=== PATIENT | male | born 1980 | race Two or more races ===

== ENCOUNTER 2021-12-08 12:08 | Outpatient (REF) | payer OTHER, SELFPAY ==
--- NOTE | ~2021-12-08 | XR_ITS ---
EXAMINATION: XR KNEE, RIGHT CLINICAL INFORMATION: Right knee pain COMPARISON: None TECHNIQUE: Four views of the right knee. FINDINGS: Bones and soft tissues are normal. No fracture or joint effusion. Alignment is anatomic. Joint spaces are well maintained. No abnormal soft tissue calcification. XR/XR knee RT 4V IMPRESSION: Normal right knee.
== END 2021-12-08 12:09 | disposition home or self-care (01) ==
LOC: HO.HMGCX 12:08
PROVIDERS: PCP Nurse Practitioner Family; Visit Provider Nurse Practitioner Family
DX: M25.561 Pain in right knee (principal)
CPT/HCPCS: 73564

== ENCOUNTER 2021-12-09 07:18 | Outpatient (REF) | payer OTHER, SELFPAY ==
[2021-12-09 11:20] LABS: MANUAL DIFF FLAG NO
[2021-12-09 11:36] LABS: Appearance Urine Turbid; Color Urine Yellow; Glucose Urine UA Negative (Negative); Leukocyte Esterase Urine Negative (Negative); Nitrite Urine Negative (Negative); Urine Blood Negative (Negative); Urine Ketones Negative (Negative); Urine Protein Negative (Neg-Trace)
[2021-12-09 11:51] LABS: Basophils Percent Auto 0.7 % (0-2); Hematocrit 48.2 % (42.0-52.0); Hemoglobin 15.9 g/dl (14.0-18.0); Imm Gran Abs Auto 0.01 X10*3/uL (0.00-0.03); Imm Gran Pct Auto 0.4 % (0.0-0.4); Lymphocytes Absolute Auto 0.7 X10*3/uL (1.2-4.9); Lymphocytes Percent Auto 24.7 % (20-40); Mean Corpuscular Hemoglobin 27.6 pg (27.0-33.0); Mean Corpuscular Volume 83.5 fL (80.0-98.0); Mean Platelet Volume 9.6 fL (9.4-12.4); Monocytes Absolute Auto 0.4 X10*3/uL (0.1-1.2); Monocytes Percent Auto 13.1 % (2-11); Neutrophils Absolute Auto 1.7 x10*3/uL (2.0-8.3); Neutrophils Percent Auto 61.1 % (45-73); Platelet Count 165 X10*3/uL (160-400); Red Blood Count 5.77 X10*6/uL (4.60-5.80); Red Cell Distribution Width 13.2 % (11.0-16.0); White Blood Count 2.8 X10*3/uL (4.8-10.8)
[2021-12-09 12:13] LABS: TSH reflex Free T4 1.01 uIU/mL (0.32-4.0)
[2021-12-09 12:39] LABS: Alanine Aminotransferase 10 U/L (0-40); Albumin Level 4.2 g/dL (3.5-5.0); Alkaline Phosphatase 72 U/L (39-117); Anion Gap 13 (12-20); Aspartate Amino Transferase 16 U/L (5-37); Bilirubin Total 0.9 mg/dL (0.0-1.0); Blood Urea Nitrogen 14 mg/dL (9-16); Calcium 9.4 mg/dL (8.4-10.2); Carbon Dioxide 29 mmol/L (22-29); Chloride 104 mmol/L (96-108); Cholesterol 180 mg/dL; Estimated Glomerular Filt Rate 58; Glucose Fasting 89 mg/dL (60-99); HDL Cholesterol 46 mg/dL; LDL Cholesterol Calculated 117 mg/dl; Potassium 4.5 mmol/L (3.3-5.1); Sodium 141 mmol/L (135-145); Total Protein 6.7 g/dL (6.5-8.0); Triglycerides 86 mg/dL
== END 2021-12-09 07:19 | disposition home or self-care (01) ==
LOC: HO.HMGCLDS 07:18
PROVIDERS: PCP Nurse Practitioner Family; Visit Provider Nurse Practitioner Family
DX: Z00.00 Encounter for general adult medical examination without abnormal findings (principal)
CPT/HCPCS: 36415; 80053; 80061; 81003; 84443; 85025

== ENCOUNTER 2022-02-02 08:52 | Outpatient (REF) | payer OTHER, SELFPAY ==
[2022-02-02 11:34] LABS: Basophils Percent Auto 0.4 % (0-2); Hematocrit 45.7 % (42.0-52.0); Hemoglobin 15.2 g/dl (14.0-18.0); Lymphocytes Absolute Auto 0.5 X10*3/uL (1.2-4.9); Lymphocytes Percent Auto 22.6 % (20-40); MANUAL DIFF FLAG SCAN; Mean Corpuscular HGB Conc 33.3 g/dl (31.0-36.0); Mean Corpuscular Hemoglobin 27.3 pg (27.0-33.0); Mean Platelet Volume 9.6 fL (9.4-12.4); Monocytes Absolute Auto 0.3 X10*3/uL (0.1-1.2); Monocytes Percent Auto 11.7 % (2-11); Neutrophils Absolute Auto 1.5 x10*3/uL (2.0-8.3); Neutrophils Percent Auto 65.3 % (45-73); Platelet Count 156 X10*3/uL (160-400); Red Blood Count 5.57 X10*6/uL (4.60-5.80); Red Cell Distribution Width 13.3 % (11.0-16.0); SCAN SMEAR FLAG 1
[2022-02-02 11:35] LABS: White Blood Count 2.3 X10*3/uL (4.8-10.8)
[2022-02-02 12:03] LABS: SLIDE REVIEW VERIFIED
== END 2022-02-02 08:53 | disposition home or self-care (01) ==
LOC: HO.HMGCLDS 08:52
PROVIDERS: PCP Nurse Practitioner Family; Visit Provider Nurse Practitioner Family
DX: D72.819 Decreased white blood cell count, unspecified (principal)
CPT/HCPCS: 36415; 85025

== ENCOUNTER → 2022-02-13 10:06 | Outpatient (BNV) | payer MEDICAID, OTHER, SELFPAY | PROVIDERS: PCP Nurse Practitioner Family; Referring Provider Nurse Practitioner Family; Visit Provider Internal Medicine | DX: D72.819 Decreased white blood cell count, unspecified (principal) | CPT/HCPCS: 99204; 99213 ==

== ENCOUNTER 2022-02-16 08:00 | Outpatient (RCR) | payer OTHER, SELFPAY ==
--- NOTE | 2022-01-29 08:49 | MHC.PT.EP ---
[facility] [place] Office [place] Office [place] Office [address] Vasu Tim [address] [phone] F: [phone] F: [phone] F: [phone] F: [phone] Physical Therapy Plan of Care Date of Evaluation: Date of Surgery: Diagnosis: R knee and LBP. Assessment: Pt is a 41 y/o male referred to PT for eval and treat of R knee pain and LBP resulting in decreased tolerance for performing heavy HH chores, negotiating stairs, standing increased duration and walking increased duration, sitting for duration and lifting objects of weight from the ground secondary to decreased R knee strength, mild R knee vlagus and anterior drawer exam increased laxity compared to L, increased lumbar tissue tension, increased B hamstring tissue tension, decreased lumbar ROM, increased lumbar tissue creased posture and pain. Pt is deemed an appropriate candidate to receive skilled PT services to address their physical impairments in order to improve thier functional ability. Frequency and Duration: The patient will be seen 2 x / wk x 5 wks. Short Term Goals: Initiate HEP. Residential Goals: I with HEP. Pt will be able to sit as long as he'd like provided choice of seat; initial: < 1 hour. Pt will be able to negotiate a flight of stairs with managed Sx; initial: quite a bit of difficulty. Improve R knee extension MMT by at least 1/2 MMT; initial: 4/5 limited by pain. Pt will report dianne to tolerate Heavy HH chores with at most a little bit of difficulty; initial: quite a bit of difficulty. Treatment Plan: Modalities to reduce pain, spasms and effusion. Manual therapy to restore motion and function. Therapeutic exercise to improve strength and flexibility. Neuromuscular re-education for posture and balance. Therapeutic activities to return to functional activities of daily living. Electronically signed by: Fernando Rockwell PT. Please sign and return to therapist. Thank you for your referral.
--- NOTE | 2022-02-18 09:09 | MHC.PT.DC ---
[facility] [place] Office [place] Office [place] Office [address] Vasu Tim [address] [phone] F: [phone] F: [phone] F: [phone] F: [phone] Physical Therapy Discharge Report Diagnosis: R knee and LBP. Date of Surgery: Date of Evaluation: 01/20/22 Date of Discharge: 02/18/22 Treatments to Date: 5 Cancellations to Date: No Shows to Date: 3 Discharge Status: Improved Function Independent with HEP Discharge Summary: Eusebio had been an active participant in his therapy for his attended visits with evidence of home program compliance. He had reported significant improvement of his back pain with basic exercise ideas as well as some improvement of his knee pain. Unfortunately he has logged 3 no-show visits and is DC'd per [facility] attendance policy for this point of care. Electronically signed by: Fernando Rockwell PT. Please sign and return to therapist. Thank you for your referral.
== END 2022-02-18 09:09 | disposition home or self-care (01) ==
LOC: HO.PTCHIC 08:00
PROVIDERS: PCP Nurse Practitioner Family; Visit Provider Nurse Practitioner Family
DX: M25.561 Pain in right knee (principal); M54.50 Low back pain, unspecified
CPT/HCPCS: 97110; 97161